=== PATIENT | female | born 1960 | race Caucasian/White ===

== ENCOUNTER 2018-04-03 07:14 | Day surgery (SDC) | payer MEDICAID ==
[2018-04-03] MEDS ORDERED: Lactated Ringer's 500 ML IV ONE (07:29)
[2018-04-03] MEDS ORDERED: Propofol 10 mg/ml Inj (20 ML) ONE (08:49)
[2018-04-03] MEDS ORDERED: Midazolam 2 MG/2 ML VIAL ONE (08:49)
[2018-04-03 09:40] VITALS: RESP 19; TEMP 98; O2SAT 98
[2018-04-03 09:41] VITALS: BP 106/70; PULSE 50
== END 2018-04-03 10:20 | disposition home or self-care (01) ==
LOC: H.ENDO 07:14
PROVIDERS: ATTEND Internal Medicine Gastroenterology
DX: Z86.010 Personal history of colon polyps (principal); E78.5 Hyperlipidemia, unspecified; K64.8 Other hemorrhoids
CPT/HCPCS: 45378; J2001; J2250; J2704; J7120